=== PATIENT | male | born 1940 | race Caucasian/White ===

== ENCOUNTER 2019-09-29 06:19 | Emergency (ER) | payer OTHER, MEDICAID ==
[~2019-09-29] VITALS: Ht 170.2 cm; Wt 102.2 kg
[2019-09-29 07:57] LABS: microscopic required? YES; urine erythrocyte 1+ (NEGATIVE)
[2019-09-29 08:30] VITALS: BP 179/68
== END 2019-09-29 08:30 | disposition home or self-care (01) ==
LOC: ED 06:19
PROVIDERS: Emergency Medicine
DX: N47.6 Balanoposthitis (principal); E11.9 Type 2 diabetes mellitus without complications; I10 Essential (primary) hypertension
CPT/HCPCS: 82962

== ENCOUNTER 2020-03-31 13:13 | Emergency (ER) | payer OTHER, MEDICAID ==
[~2020-03-31] VITALS: Ht 172.7 cm; Wt 93.9 kg
[2020-03-31 13:15] VITALS: BP 135/76; Ht 172.7 cm; Wt 93.9 kg
[2020-03-31 15:57] LABS: BASOPHIL % 0.2 % (0.2-1.5); PLATELET COUNT 151 x10^3mcL (152-348)
[2020-03-31 16:19] LABS: CALCIUM 9.2 mg/dL (8.5-10.1); CARBON DIOXIDE 27.1 mmol/L (21-32); CHLORIDE SERUM 94 mmol/L (98-107); CREATININE SERUM 1.1 mg/dL (0.7-1.3); GLUCOSE SERUM 122 mg/dL (74-106); POTASSIUM SERUM 3.9 mmol/L (3.5-5.1); SODIUM SERUM 132 mmol/L (136-145)
[2020-03-31 16:24] LABS: ALBUMIN 3.7 g/dL (3.4-5.0); ALKALINE PHOSPHATASE 75 U/L (46-116); ALT/SGPT 34 U/L (16-63); AST/SGOT 38 U/L (15-37); BILIRUBIN TOTAL 0.5 mg/dL (0.20-1.00); C REACTIVE PROTEIN 4.5 mg/dL (<=0.9); LACTIC DEHYDROGENASE (LDH) 269 U/L (100-190); TOTAL PROTEIN, SERUM 7.5 g/dL (6.4-8.2)
[2020-03-31 16:30] LABS: RED CELL DISTRIBUTION WIDTH 16.9 % (12.1-16.2)
[2020-03-31 16:34] LABS: rbc morphology (normal/abnorm) NORMAL (NORMAL)
[2020-03-31 18:42] LABS: UA SPECIFIC GRAVITY 1.025 (1.005-1.035); microscopic required? YES; urine erythrocyte TRACE (NEGATIVE)
== END 2020-03-31 17:57 | disposition home or self-care (01) ==
LOC: ED 13:13
PROVIDERS: Emergency Medicine
DX: U07.1 COVID-19 (principal); J12.89 Other viral pneumonia; J45.909 Unspecified asthma, uncomplicated; I10 Essential (primary) hypertension; E11.9 Type 2 diabetes mellitus without complications
CPT/HCPCS: 36600; 83880; 85378; 87804; U0003

== ENCOUNTER 2020-04-07 20:33 | Emergency (ER) | payer OTHER ==
[~2020-04-07] VITALS: Ht 170.2 cm; Wt 86.2 kg
[2020-04-07 21:21] VITALS: Ht 170.2 cm; Wt 86.2 kg
[2020-04-08 03:54] VITALS: BP 127/63
== END 2020-04-08 03:54 | disposition home or self-care (01) ==
LOC: ED 20:33
DX: U07.1 COVID-19 (principal); J45.909 Unspecified asthma, uncomplicated; I10 Essential (primary) hypertension; E11.9 Type 2 diabetes mellitus without complications; Z86.73 Personal history of transient ischemic attack (TIA), and cerebral infarction without residual deficits
CPT/HCPCS: M0239; Q0239